=== PATIENT | male | born 1975 | race Two or more races ===

== ENCOUNTER 2024-08-29 12:30 | Emergency (ER) | payer OTHER ==
[~2024-08-29] VITALS: Ht 180.3 cm; Wt 106.6 kg
[2024-08-29] MEDS ORDERED: LOSARTAN POTASS50 MG PO (13:16)
[2024-08-29] MEDS ORDERED: KETOROLAC TROMETHAMINE 60 MG VIAL IM STA (14:29)
[2024-08-29] MEDS ORDERED: NIFEDIPINE 20 MG CAPSULE PO ONE (16:45)
[2024-08-29 17:21] LABS: HEMATOCRIT 44.3 % (39.0-48.0); HEMOGLOBIN 15.3 g/dL (13-16.00); MEAN CELL VOLUME 82.9 fL (80.0-100.00); MEAN CORPUSCULAR HEMOGLOBIN 28.7 pg (27.00-32.0); MEAN CORPUSCULAR HGB CONC 34.6 g/dl (32.0-36.0); PLATELET COUNT 200 K/uL (150-450); RED BLOOD COUNT 5.35 M/uL (4.00-6.00); RED CELL DISTRIBUTION WIDTH 13.7 % (11.5-14.5)
[2024-08-29] MEDS ORDERED: LOSARTAN POTASSIUM 100 MG TABLET PO ONE (17:45)
[2024-08-29 17:50] LABS: ALBUMIN 4.1 gm/dL (3.4-5.0); BILIRUBIN TOTAL 1.2 mg/dL (0.3-1.2); CALCIUM 9.3 mg/dL (8.5-10.1); CREATININE SERUM 1.13 mg/dL (0.70-1.30); GFR 68.69; GLOBULINA 3.8 G/DL (2.4-3.5); POTASSIUM 4.26 mEq/L (3.5-5.1); TOTAL PROTEIN 7.9 gm/dL (6.4-8.2)
[2024-08-29] MEDS ORDERED: KETO10TA2 PO (19:33)
== END 2024-08-29 20:02 | disposition home or self-care (01) ==
LOC: ER 12:32
PROVIDERS: General Practice
DX: M54.2 Cervicalgia (principal); I10 Essential (primary) hypertension; M19.90 Unspecified osteoarthritis, unspecified site

== ENCOUNTER 2025-04-06 16:21 | Emergency (ER) | payer OTHER ==
[~2025-04-06] VITALS: Ht 177.8 cm; Wt 98.0 kg
[~2025-04-06 16:21] MED LIST: KETO10TA2 PO; LOSARTAN POTASS50 MG PO
[2025-04-06] MEDS ORDERED: COZAAR100 MG PO (16:43)
[2025-04-06] MEDS ORDERED: AMLODIPINE-OLM1 EAC2 (16:43)
[2025-04-06] MEDS ORDERED: KETOROLAC TROMETHAMINE 30 MG VIAL ONE (17:02)
[2025-04-06] MEDS ORDERED: KETOROLAC TROMETHAMINE 30 MG VIAL IM STA (17:03)
== END 2025-04-06 17:12 | disposition home or self-care (01) ==
LOC: ER 16:21
DX: S46.219A Strain of muscle, fascia and tendon of other parts of biceps, unspecified arm, initial encounter (principal)